=== PATIENT | female | born 1990 | race African-American/Black ===

== ENCOUNTER 2017-06-05 13:04 | Inpatient (IN) ==
[2017-06-05] MEDS ORDERED: MEPERIDINE 50 MG/1 ML VIAL IV PRN (13:22)
[2017-06-05] MEDS ORDERED: ONDANSETRON 4 MG/2 ML VIAL IV PRN (13:22)
[2017-06-05] MEDS ORDERED: BUTORPHANOL 2 MG/ML VIAL IV PRN (13:22)
[2017-06-05] MEDS: LACTATED RINGERS 1,000 ML IV SCH ×2 (13:30→21:11)
[2017-06-05] MEDS ORDERED: AMPICILLIN INJ 2,000 MG in SODIUM CHLORIDE 0.9% 100 ML IV ONE ×2 (13:32→18:00)
[2017-06-05 13:47] LABS: Basophils % 0.3 % (0.0-0.8); Eosinophils % 0.5 % (0.00-10.9); Hematocrit 31.2 VOL% (35.7-47.0); Hemoglobin 10.8 GM/DL (12.0-16.0); Immature Granulocytes % 0.5 %; Immature Granulocytes Absolute 0.04 #; Lymphocytes # 1.8 10*3/uL (1.4-4.0); Mean Corpuscular HGB Conc 34.6 GM/DL (32-36); Mean Corpuscular Hemoglobin 32 PG (27-34); Mean Corpuscular Volume 91.5 FL (87-102); Mean Platelet Volume 10.4 FL (9.6-12.0); Monocytes # 0.6 10*3/uL (0.11-0.8); Monocytes % 7.5 % (1.7-12.7); Neutrophils # 5.4 10*3/uL (1.4-7.4); Neutrophils % 68.2 % (38.7-73.9); Platelet Count 174 T/CUMM (130-400); Red Blood Count 3.41 MC/CUMM (3.8-5.5); Red Cell Distribution Width 12.6 % (9.3-17.3); White Blood Count 7.8 T/CUMM (4-12)
[2017-06-05] MEDS ORDERED: AMPICILLIN INJ 1,000 MG in SODIUM CHLORIDE 0.9% 100 ML IV SCH (18:00)
[2017-06-05] MEDS ORDERED: CITRIC ACID/SODIUM CITRATE 30 ML UDCUP PO ONE (20:14)
[2017-06-05] MEDS ORDERED: diphenhydrAMINE 50 MG/1 ML VIAL IV PRN (20:14)
[2017-06-05] MEDS ORDERED: fentaNYL 2 MCG/ROPIV 0.2% EPID 150 ML EPIDURAL SCH (20:14)
[2017-06-05] MEDS ORDERED: ePHEDrine 50 MG/ML AMP IV PRN (20:14)
[2017-06-05] MEDS ORDERED: PROMETHAZINE 25 MG/1 ML VIAL IM ONE (20:14)
[2017-06-05] MEDS ORDERED: FAMOTIDINE 20 MG/2 ML VIAL IV ONE (20:14)
[2017-06-05 20:43] LABS: Basophils % 0.1 % (0.0-0.8); Eosinophils % 0.5 % (0.00-10.9); Hematocrit 29.9 VOL% (35.7-47.0); Hemoglobin 10.3 GM/DL (12.0-16.0); Immature Granulocytes % 0.6 %; Immature Granulocytes Absolute 0.05 #; Lymphocytes # 1.9 10*3/uL (1.4-4.0); Lymphocytes % 21.5 % (21.3-54.2); Mean Corpuscular HGB Conc 34.4 GM/DL (32-36); Mean Corpuscular Hemoglobin 31 PG (27-34); Mean Corpuscular Volume 90.3 FL (87-102); Mean Platelet Volume 10.5 FL (9.6-12.0); Monocytes # 0.7 10*3/uL (0.11-0.8); Monocytes % 8.2 % (1.7-12.7); Neutrophils % 69.1 % (38.7-73.9); Platelet Count 155 T/CUMM (130-400); Red Blood Count 3.31 MC/CUMM (3.8-5.5); Red Cell Distribution Width 12.7 % (9.3-17.3); White Blood Count 8.7 T/CUMM (4-12)
[2017-06-05] MEDS: AMPICILLIN INJ 1,000 MG in SODIUM CHLORIDE 0.9% 100 ML IV SCH (22:34)
[2017-06-05 23:04] LABS: Apearance,Urine CLEAR (Clear); Bilirubin,Urine Negative (Negative); Blood, Urine Negative (Negative); Glucose,Urine (UA) Negative (Negative); Ketones,Urine Negative (Negative); Mucus,Urine Occasional /LPF (Occasional); Nitrite,Urine Negative (Negative); Protein,Urine Negative; RBC,Urine 1 /HPF (0-4); Urine Color Yellow (Yellow); Urine Specific Gravity 1.011 (1.001-1.035); WBC,Urine 1 /HPF (0-6)
--- NOTE | 2017-06-06 00:11 | OB/GYN History & Physical ---
History of Present Illness Chief complaint: Sent from clinic for induction of labor @ 39.0 wks secondary to GARO 5.0 History of present illness: Ms. Lyman is a 26 year old female with an EDC of 06/12/17 LMP with EGA @ 39.0 wks. She was sent from clinic with GARO 5.0 cm and patient's desire to be induced. Risks of induction were discussed with the patient to include hyperstimulation, nonreassuring FHTs, increased risk of induction failure, possibility of section if failed induction or distress. Discussed possible abruption, demise, or risk for hysterectomy if warranted- verbalized understanding. Records are current, available, and up to date. During the course of her , on ultrasound her fetus was noted to have an echogenic bowel and GBS positive. Labs: Blood type O positive; Rubella immune; VDRL negative; Urine culture negative; HIV negative; HBsAg negative; Chlamydia negative; GC negative; UDS negative;1 hr gtt 87; GBS positive Home Medications Medication Instructions Recorded Confirmed Type Multivitamin () [ 1 tablet PO DAILY 12/29/14 06/05/17 History Vitamin] Allergies Allergy/AdvReac Type Severity Reaction Status Date / Time No Known Allergies Allergy Verified 06/05/17 18:54 12 point system: reviewed and no additional remarkable complaints except as stated Medical,Surgical,& Family Hx - Medical History Medical History: noncontributory Reproductive: No history of: Ectopic , Complication - Surgical History Surgical History: noncontributory Cardiac Surgeries: Patient Denies: Cardiac Catheterization Reproductive Surgeries: Patient denies;: Section - Family History Family History: Reports;: Family Diabetes (MGM), Family Hypertension (MOTHER) - Social History Smoking Status: Never smoker Frequency of Alcohol Use: None Type of Drug Use: None Exam PERSONAL INJURY [place] - Constitutional Vitals: Vital Signs Temp Pulse Resp BP 06/05/17 22:01 97.4 F L 06/05/17 19:10 97.4 F L 06/05/17 16:00 97.3 F L 87 20 137/81 General appearance: no acute distress - Antepartum / Post Antepartum Exam Cervix - Dilatation: 5 cm Effacement: 70% Station: -1 station Rupture: Intact Presentation: vtx Heart Rate: FHTs @ 130s with spontaneous variability, Category I FHR tracing [place]: Every 2-3 min/ 60-70 sec/ mod Breast: bilateral: normal Abdomen obstetrics: Present: bowel sounds normal Vagina: Present: normal moisture Uterus exam: Present: enlarged (gravid, uterine tonus soft between contractions , pitocin @ 8 mu/min) Adnexa: bilateral: normal Anus/Rectum: Present: normal perianal skin - Head Head exam: Present: normal inspection - Eye Eye exam: Present: EOMI - ENT ENT exam: Present: normal exam - Neck Neck exam: Present: normal inspection - Respiratory Respiratory exam: Present: clear to auscultation bilaterally - Cardiovascular Cardiovascular exam: Present: regular rate and rhythm - GI/Abdominal GI/Abdominal exam: Present: normal bowel sounds - Extremities Exam Extremities exam: Present: normal inspection, normal capillary refill, full ROM - Neurological Exam Neurological exam: Present: alert, oriented X3, normal gait - Psychiatric Psychiatric exam: Present: normal affect, normal mood - Skin Skin exam: Present: normal color, warm, dry Assessment and Plan (1) Oligohydramnios antepartum Status: Acute Current Visit: Yes Results - Labs CBC & BMP: 06/05/17 20:35
[2017-06-06] MEDS ORDERED: OXYTOCIN/LR 20 UNIT/1,000 ML BAG IV SCH (01:00)
[2017-06-06] MEDS: AMPICILLIN INJ 1,000 MG in SODIUM CHLORIDE 0.9% 100 ML IV SCH (02:05)
[2017-06-06] MEDS ORDERED: miSOPROStol 200 MCG TABLET ONE (04:27)
[2017-06-06] MEDS ORDERED: CARBOPROST TROMETHAMINE 250 MCG/ML AMP IM ONE (04:28)
--- NOTE | 2017-06-06 05:03 | Operative Note ---
Date of procedure: 06/06/17 Pre-op diagnosis: IUP @ 39.1 wks, Oligohydraminos Post-op diagnosis: other () Procedure: Patient received in dorsal lithotomy position. Patient was draped and prepped. At 4:48 AM, head delivered in ANAI position under an epidural anesthetic. Anterior then posterior shoulders were delivered easily without difficulty. delivered in usual fashion and secured. Mouth and nose bulb suctioned. After approximately 1-1/2 minutes postdelivery, cord stopped pulsating, cord doubly clamped and cut per father of the baby. placed on mother's chest. At 4:51 AM, spontaneous delivery of placenta via Umu position, with 3 vessel cord noted, normal cord insertion, with small calcifications. Hemostasis maintained with fundal massage and Pitocin 20 units in 1000 cc of lactated Ringer. Perineum inspected with small vaginal abrasion is noted, stable , no repair needed. January with Apgars 9 and 9. Mother and baby stable. Mother desires to breast-feed. Mother presently binding with the baby at this time. Baby remains skin to skin with the mother. Anesthesia: epidural Surgeon / Physician: Pattie Bingham Estimated blood loss: other (150 cc) Specimens: other (Placenta to pathology secondary to oligohydramnios) Condition: stable Disposition: floor Results - Labs CBC & BMP: 06/05/17 20:35 Discharge Plan - Discharge Medications No Action Multivitamin () [ Vitamin] 1 tablet PO DAILY - Follow Up or Referral - Forms/Instructions
[2017-06-06] MEDS ORDERED: oxyCODONE/ACETAMINOPHEN 5-325 MG TABLET PO PRN (05:06)
[2017-06-06] MEDS ORDERED: OXYTOCIN/LR 20 UNIT/1,000 ML BAG IV ONE (05:06)
[2017-06-06] MEDS ORDERED: ACETAMINOPHEN 325 MG TABLET PO PRN (05:06)
[2017-06-06] MEDS ORDERED: WITCH HAZEL PADS 100/JAR TOP PRN (05:06)
[2017-06-06] MEDS ORDERED: RHO(D) IMMUNE GLOBULIN 300 MCG SYRINGE IM ONE (05:06)
[2017-06-06] MEDS ORDERED: BENZOCAINE 20%/MENTHOL 0.5% SPRAY 56 GM CAN TOP PRN (05:06)
[2017-06-06] MEDS ORDERED: LANOLIN 50% CREAM 0.3 OZ TUBE TOP PRN (05:06)
[2017-06-06] MEDS ORDERED: BISACODYL 10 MG SUPP RECTAL PRN (05:06)
[2017-06-06] MEDS ORDERED: DIPH/TET/ACEL PERT BOOSTER VACCINE 0.5 ML VIAL IM ONE (05:06)
[2017-06-06] MEDS ORDERED: HYDROCORTISONE 2.5% RECTAL CREAM 30 GM TUBE TOP PRN (05:06)
[2017-06-06] MEDS ORDERED: MEASLES/MUMPS/RUBELLA VACCINE 0.5 ML VIAL SUBCUT ONE (05:06)
[2017-06-06] MEDS: MULTIVITAMIN (PRENATAL) TABLET PO SCH (08:35)
[2017-06-06] MEDS: FERROUS SULFATE 325 MG TABLET PO SCH ×3 (08:35→22:40)
[2017-06-06] MEDS: DOCUSATE SODIUM 100 MG CAPSULE PO SCH ×2 (08:36→22:40)
--- NOTE | 2017-06-06 09:04 | Anesthesia Post-Op ---
Anesthesia Post OP - Post Ansesthetic Evaluation Patient seen in post op: Yes Resp: within normal limits CV: within normal limits Mental: within normal limits Temp: within normal limits [id number]: within normal limits Nausea and Vomiting: within normal limits Pain: within normal limits
[2017-06-06] MEDS: oxyCODONE/ACETAMINOPHEN 5-325 MG TABLET PO PRN ×2 (10:44→17:56)
[2017-06-06] MEDS: IBUPROFEN 800 MG TABLET PO PRN (10:45)
[2017-06-07] MEDS: oxyCODONE/ACETAMINOPHEN 5-325 MG TABLET PO PRN ×2 (04:16→20:24)
[2017-06-07 04:59] LABS: Basophils % 0.2 % (0.0-0.8); Eosinophils # 0.1 10*3/uL (0.0-0.87); Hemoglobin 9.8 GM/DL (12.0-16.0); Immature Granulocytes % 0.6 %; Immature Granulocytes Absolute 0.06 #; Lymphocytes # 2.6 10*3/uL (1.4-4.0); Lymphocytes % 25.2 % (21.3-54.2); Mean Corpuscular HGB Conc 33.8 GM/DL (32-36); Mean Corpuscular Hemoglobin 31 PG (27-34); Mean Corpuscular Volume 92.4 FL (87-102); Mean Platelet Volume 10.9 FL (9.6-12.0); Monocytes # 0.8 10*3/uL (0.11-0.8); Monocytes % 7.4 % (1.7-12.7); Neutrophils # 6.7 10*3/uL (1.4-7.4); Neutrophils % 65.6 % (38.7-73.9); Platelet Count 172 T/CUMM (130-400); Red Blood Count 3.14 MC/CUMM (3.8-5.5); Red Cell Distribution Width 12.9 % (9.3-17.3); White Blood Count 10.3 T/CUMM (4-12)
[2017-06-07] MEDS: MULTIVITAMIN (PRENATAL) TABLET PO SCH (08:40)
[2017-06-07] MEDS: DOCUSATE SODIUM 100 MG CAPSULE PO SCH ×2 (08:40→20:24)
[2017-06-07] MEDS: FERROUS SULFATE 325 MG TABLET PO SCH ×3 (08:40→20:24)
--- NOTE | 2017-06-07 10:13 | Discharge Summary ---
Hospital Course - Hospital Course Hospital Course: Patient is a 26-year-old 2 now para 2001 that presented with an GARO of 5.0 at 39 weeks labor was induced with Cytotec patient to deliver a male with Apgars 9 and 9 weighing 2948 g. She is presently breast-feeding without difficulty she is stable. She desires the Mirena for control. She will be discharged home tomorrow if stable. As of today we will continue routine care Diagnosis - Discharge Diagnosis (1) Oligohydramnios antepartum Status: Resolved (2) Normal spontaneous vaginal delivery Status: Resolved (3) Anemia Status: Acute Specialty Discharge - Follow Up or Referrals Follow up with: Pattie Bingham CFNP [Advanced Practice Nurse] - 2 Weeks Discharge Plan - Discharge Data Disposition: Disch To Home/Self Care Condition at Discharge: Stable Discharge Diet: advance to your usual diet Activity: resume usual activities as tolerated Hygiene: may shower Weight Bearing at Discharge: full weight bearing Driving: not for (2 weeks) - Discharge Medications New Ferrous Sulfate Tab [Feosol Original Tab] 325 mg PO TID #90 tablet Ibuprofen Tab [Motrin Tab] 800 mg PO Q8H PRN #90 tablet PRN Reason: Pain Moderate (4-7) No Action Multivitamin () [ Vitamin] 1 tablet PO DAILY - Follow Up or Referral - Forms/Instructions Exam - Constitutional Vitals: Period Temp Pulse Resp BP Sys/Mcknight Pulse Ox Last 24 Hr 97.1 F-97.8 F 68-85 18-20 124-134/71-87 97-99 Laboratory Tests 06/05/17 06/05/17 06/05/17 13:39 13:39 20:35 WBC 7.8 8.7 RBC 3.41 L 3.31 L Hgb 10.8 L 10.3 L Hct 31.2 L 29.9 L MCV 91.5 90.3 MCH 32 31 MCHC 34.6 34.4 RDW 12.6 12.7 Plt Count 174 155 MPV 10.4 10.5 Neut % (Auto) 68.2 69.1 Lymph % (Auto) 23.0 21.5 Cecil % (Auto) 7.5 8.2 Eos % (Auto) 0.5 0.5 Baso % (Auto) 0.3 0.1 Neut # (Auto) 5.4 6.0 Lymph # (Auto) 1.8 1.9 Cecil # (Auto) 0.6 0.7 Eos # (Auto) 0.0 0.0 Baso # (Auto) 0.0 0.0 Immature Gran % 0.5 0.6 Nucleated RBC % 0.0 0.0 Immature Gran # 0.04 0.05 Nucleated RBCs # 0.00 0.00 Immature Plt Fraction 0.0 0.0 Urine Color Urine Appearance Urine pH Ur Specific [place] Urine Protein Urine Glucose (UA) Urine Ketones Urine Blood Urine Nitrate Urine Bilirubin Urine Urobilinogen Urine Leukocytes Urine RBC Urine WBC Urine Mucus Ur Culture Indicated? Blood Type O POSITIVE Antibody Screen Negative 06/05/17 06/07/17 22:40 04:17 WBC 10.3 RBC 3.14 L Hgb 9.8 L Hct 29.0 L MCV 92.4 MCH 31 MCHC 33.8 RDW 12.9 Plt Count 172 MPV 10.9 Neut % (Auto) 65.6 Lymph % (Auto) 25.2 Cecil % (Auto) 7.4 Eos % (Auto) 1.0 Baso % (Auto) 0.2 Neut # (Auto) 6.7 Lymph # (Auto) 2.6 Cecil # (Auto) 0.8 Eos # (Auto) 0.1 Baso # (Auto) 0.0 Immature Gran % 0.6 Nucleated RBC % 0.0 Immature Gran # 0.06 Nucleated RBCs # 0.00 Immature Plt Fraction 0.0 Urine Color Yellow Urine Appearance Clear Urine pH 7.0 Ur Specific [place] 1.011 Urine Protein Negative Urine Glucose (UA) Negative Urine Ketones Negative Urine Blood Negative Urine Nitrate Negative Urine Bilirubin Negative Urine Urobilinogen 2.0 H Urine Leukocytes Negative Urine RBC 1 Urine WBC 1 Urine Mucus Occasional Ur Culture Indicated? Not indicated Blood Type Antibody Screen General appearance: no acute distress - Head Head exam: Present: normal inspection - Eye Eye exam: Present: EOMI Pupils: Present: normal accommodation - ENT ENT exam: Present: normal exam, normal external ear exam - Neck Neck exam: Present: normal inspection - Respiratory Respiratory exam: Present: clear to auscultation bilaterally - Cardiovascular Cardiovascular exam: Present: regular rate and rhythm - GI/Abdominal GI/Abdominal exam: Present: normal bowel sounds (uterus firm, midline, 2 below umbilicus. Perineum intact. minimal rubra noted on pad) - Extremities Exam Extremities exam: Present: normal inspection, normal capillary refill, full ROM - Back Exam Back exam: Present: normal inspection - Neurological Exam Neurological exam: Present: alert, oriented X3, normal gait - Psychiatric Psychiatric exam: Present: normal affect, normal mood - Skin Skin exam: Present: normal color, warm, dry Discharge Results Procedures and tests throughout hospitalization: Laboratory Tests 06/05/17 06/05/17 06/05/17 13:39 13:39 20:35 WBC 7.8 8.7 RBC 3.41 L 3.31 L Hgb 10.8 L 10.3 L Hct 31.2 L 29.9 L MCV 91.5 90.3 MCH 32 31 MCHC 34.6 34.4 RDW 12.6 12.7 Plt Count 174 155 MPV 10.4 10.5 Neut % (Auto) 68.2 69.1 Lymph % (Auto) 23.0 21.5 Cecil % (Auto) 7.5 8.2 Eos % (Auto) 0.5 0.5 Baso % (Auto) 0.3 0.1 Neut # (Auto) 5.4 6.0 Lymph # (Auto) 1.8 1.9 Cecil # (Auto) 0.6 0.7 Eos # (Auto) 0.0 0.0 Baso # (Auto) 0.0 0.0 Immature Gran % 0.5 0.6 Nucleated RBC % 0.0 0.0 Immature Gran # 0.04 0.05 Nucleated RBCs # 0.00 0.00 Immature Plt Fraction 0.0 0.0 Urine Color Urine Appearance Urine pH Ur Specific [place] Urine Protein Urine Glucose (UA) Urine Ketones Urine Blood Urine Nitrate Urine Bilirubin Urine Urobilinogen Urine Leukocytes Urine RBC Urine WBC Urine Mucus Ur Culture Indicated? Blood Type O POSITIVE Antibody Screen Negative 06/05/17 06/07/17 22:40 04:17 WBC 10.3 RBC 3.14 L Hgb 9.8 L Hct 29.0 L MCV 92.4 MCH 31 MCHC 33.8 RDW 12.9 Plt Count 172 MPV 10.9 Neut % (Auto) 65.6 Lymph % (Auto) 25.2 Cecil % (Auto) 7.4 Eos % (Auto) 1.0 Baso % (Auto) 0.2 Neut # (Auto) 6.7 Lymph # (Auto) 2.6 Cecil # (Auto) 0.8 Eos # (Auto) 0.1 Baso # (Auto) 0.0 Immature Gran % 0.6 Nucleated RBC % 0.0 Immature Gran # 0.06 Nucleated RBCs # 0.00 Immature Plt Fraction 0.0 Urine Color Yellow Urine Appearance Clear Urine pH 7.0 Ur Specific [place] 1.011 Urine Protein Negative Urine Glucose (UA) Negative Urine Ketones Negative Urine Blood Negative Urine Nitrate Negative Urine Bilirubin Negative Urine Urobilinogen 2.0 H Urine Leukocytes Negative Urine RBC 1 Urine WBC 1 Urine Mucus Occasional Ur Culture Indicated? Not indicated Blood Type Antibody Screen Labs on day of discharge: Labs from last 24 hours 06/07/17 04:17 WBC 10.3 RBC 3.14 L Hgb 9.8 L Hct 29.0 L MCV 92.4 MCH 31 MCHC 33.8 RDW 12.9 Plt Count 172 MPV 10.9 Neut % (Auto) 65.6 Lymph % (Auto) 25.2 [place] % (Auto) 7.4 Eos % (Auto) 1.0 Baso % (Auto) 0.2 Neut # (Auto) 6.7 Lymph # (Auto) 2.6 [place] # (Auto) 0.8 Eos # (Auto) 0.1 Baso # (Auto) 0.0 Immature Gran % 0.6 Nucleated RBC % 0.0 Immature Gran # 0.06 Nucleated RBCs # 0.00 Immature Plt Fraction 0.0 DS: Provider Date of admission: 06/05/17 13:22 Primary care physician: . No PCP Attending physician on admission: Pro Ferguson DO Consults: 06/05/17 13:22 Consult to Anesthesiology [CONS] Routine Consulting Provider: Reason for Anesthesiology: Epidural Consult Comment: Epidural for pain managment 06/06/17 05:06 Consult to Worm Picker [CONS] Routine Consult Worm Picker: Breast Feeding Discharging clinician: ZAYDA Rodriguez
--- NOTE | 2017-06-07 11:19 | Pathology Report from [facility] ---
[facility] – [place] ACCESSION # : [id number] PATIENT NAME : Ernestina Lyman. ORDERING DR : MARCUS CRUZ DO CLINICAL HX: IUP @ 39.1 wks gestation, oligohydramnios, cytotec induction POST-OP DX: Same SPECIMEN INFO: Placenta GROSS DESCRIPTION: Received fresh labeled with the patients name and consists of a 317 gram placenta measuring 17.3 x 13.8 cm x up to 2.0 cm. membranes are pink-martinez and translucent. The umbilical cord is pericentrally inserted, contains three vessels, focally edematous and measures 44.6 cm. The surface is blue-garza with an area of subchorionic fibrin measuring up to 2.0 cm. The maternal surface is beefy red with intact cotyledons. No gross abnormalities on sectioning. Sections submitted: A membranes and cord, B and maternal surfaces. DIAGNOSIS FOR ERNESTINA S. KEON: PLACENTA, 39.1 WEEKS GESTATIONAL AGE, DELIVERY: Mature placenta, 317 gm trimmed weight. Trivascular umbilical cord, 44.6 cm in length. Subchorionic fibrin. COLLECTED DATE: 06/06/2017 [facility] REPORT DATE: 06/07/2017 ELECTRONICALLY SIGNED BY: Mei Lopez M.D. 06/07/2017 - 10:51:11 [place]
[2017-06-08] MEDS: IBUPROFEN 800 MG TABLET PO PRN (00:26)
[2017-06-08 08:13] VITALS: BP 113/79
[2017-06-08] MEDS: DOCUSATE SODIUM 100 MG CAPSULE PO SCH (10:05)
[2017-06-08] MEDS: MULTIVITAMIN (PRENATAL) TABLET PO SCH (10:05)
[2017-06-08] MEDS: FERROUS SULFATE 325 MG TABLET PO SCH (10:06)
== END 2017-06-08 12:20 | disposition home or self-care (01) | DRG 560 ==
LOC: N.LDOUT 13:04 → N.LD 13:07 → N.OB 06-06 08:08
PROVIDERS: ADMIT Obstetrics & Gynecology; ATTEND Obstetrics & Gynecology